=== PATIENT | female | born 1985 | race Caucasian/White ===

== ENCOUNTER 2017-01-01 16:20 | Emergency (ER) | payer SELFPAY ==
[~2017-01-01] VITALS: Ht 162.6 cm; Wt 62.7 kg
[~2017-01-01 16:20] MED LIST: OSEL75 PO
[2017-01-01 16:21] VITALS: BP 145/90; PULSE 88; RESP 12; TEMP 97.9; O2SAT 99
[2017-01-01] MEDS ORDERED: SODIUM CHLORIDE 0.9% FLUSH 5 ML FLUSH IVF PRN (17:00)
[2017-01-01] MEDS ORDERED: PROCHLORPERAZINE INJ 10 MG/2 ML VIAL IVP ONE (17:00)
[2017-01-01] MEDS ORDERED: diphenhydrAMINE HCL 50 MG/ML VIAL IVP ONE (17:00)
[2017-01-01 17:03] VITALS: O2SAT 99
--- NOTE | 2017-01-01 17:22 | PD ---
HPI . Headache Chief Complaint: Headache Time Seen by Provider: 16:50 Travel History International Travel<30 days: No Contact w/Intl Traveler<30days: No Traveled to known affect area: No History of Present Illness HPI Patient presents with a 2 day history of global headache associated with some nausea and vomiting. She has taken Excedrin and BC powders with no relief. She denies any fever or blurred vision. PFSH Past Medical History Diminished Hearing: No Medical other: Yes (migraines ) Musculoskeletal: Yes (CHRONIC BACK PAIN INTERMITTENTLY ) Influenza Vaccination: Yes ?: Not LMP: 12/12/2016 : 1 Miscarriage: 1 Past Surgical History Surgical History: No Previous Surgery Social History Alcohol Use: No Tobacco Use: Yes (1 PPD) Substance Use: No (HX OPIATE ABUSE; ) Allergies-Medications (Allergen,Severity, Reaction): Coded Allergies: Bactrim (Verified Allergy, Intermediate, Itching, 01/01/17) Sulfa (Unverified Allergy, Intermediate, Rash, 01/01/17) Reported Meds & Prescriptions Reported Meds & Active Scripts Active No Active Prescriptions or Reported Medications Review of Systems Except as stated in HPI: all other systems reviewed are Neg General / Constitutional: No: Fever, Chills Eyes: No: Blurred Vision, Photophobia HENT: Positive: Headaches Gastrointestinal: Positive: Nausea, Vomiting Physical Exam Narrative GENERAL: This is a healthy-appearing woman who is lying on the stretcher in a lighted room in no apparent distress. SKIN: Warm and dry. HEAD: Atraumatic. Normocephalic. EYES: Pupils equal and round. ENT: No nasal bleeding or discharge. Mucous membranes pink and moist. RESPIRATORY: No accessory muscle use. MUSCULOSKELETAL: No obvious deformities. No edema. NEUROLOGICAL: Awake and alert. No obvious cranial nerve deficits. Motor grossly within normal limits. Normal speech. PSYCHIATRIC: Appropriate mood and affect; insight and judgment normal. Data Data Last Documented VS Vital Signs Date Time Temp Pulse Resp B/P Pulse Ox O2 Delivery O2 Flow Rate FiO2 01/01/17 17:03 99 Room Air 01/01/17 16:21 97.9 88 12 145/90 Orders Ecg Monitoring (01/01/17 16:50) Iv Access Insert/Monitor (01/01/17 16:50) Oximetry (01/01/17 16:50) Sodium Chloride 0.9% Flush (Ns Flush) (01/01/17 17:00) Prochlorperazine Inj (Compazine Inj) (01/01/17 17:00) Diphenhydramine Inj (Benadryl Inj) (01/01/17 17:00) MDM Medical Decision Making Medical Screen Exam Complete: Yes Emergency Medical Condition: Yes Differential Diagnosis Differential diagnosis of headache includes but is not limited to migraine, muscle contraction headache, brain tumor, brain bleed Narrative Course Patient presents for evaluation and treatment of headache. She does not appear to be in any distress. This is her usual headache. 5:49 PM Patient is now sound asleep in no distress. Diagnosis Primary Impression: Headache Qualified Code: R51 - Acute nonintractable headache, unspecified headache type Scripts No Active Prescriptions or Reported Meds Disposition: 01 DISCHARGE HOME Condition: Stable Hermila Fontana MD Jan 01, 2017 17:22
== END 2017-01-01 18:11 | disposition home or self-care (01) ==
LOC: NEPE 16:20
DX: R51 Headache (principal); F17.210 Nicotine dependence, cigarettes, uncomplicated
CPT/HCPCS: 96374; 96375; 99283; J0780; J1200

== ENCOUNTER 2017-10-16 19:17 | Emergency (ER) | payer SELFPAY ==
[~2017-10-16] VITALS: Ht 162.6 cm; Wt 60.0 kg
[2017-10-16 19:19] VITALS: BP 124/81; PULSE 85; RESP 16; TEMP 98.5; O2SAT 100
--- NOTE | 2017-10-16 20:03 | PD ---
HPI Chief Complaint: Abdominal Pain Time Seen by Provider: 19:32 Travel History International Travel<30 days: No Contact w/Intl Traveler<30days: No Traveled to known affect area: No History of Present Illness HPI 32-year-old female presents to the emergency Department with complaint of a sharp pain in her lower abdomen/pelvic region that has been intermittent for the past couple weeks. She reports nausea and vomiting that is worse at night in the mornings 2 weeks. Reports a mild foul odor vaginal discharge that is intermittent. Denies itchiness or lesions. Denies dysuria. Reports urinary frequency. Denies hematuria, hematemesis. Reports breast tenderness. Denies diarrhea. Last menstrual period was around September 01. Describes the pain as needle. Rates the pain /. He tried Tums and Tylenol for symptom management. Tums made the symptoms worse. Allergies to sulfa. Primary care provider is Dr. Walters. History of hypertension and does not take medications. Does take Suboxone 45 mg daily and Adderall 10 mg twice daily. Denies recent drug use. Denies alcohol use. Reports tobacco use. Has no other medical complaints. No other modifying factors or associated signs and symptoms. PFSH Past Medical History Diminished Hearing: No Musculoskeletal: Yes (CHRONIC BACK PAIN INTERMITTENTLY ) LMP: AUG 23, 2017 : 1 Miscarriage: 1 Social History Alcohol Use: No Tobacco Use: Yes (1 PPD) Substance Use: No (HX OPIATE ABUSE; ) Allergies-Medications (Allergen,Severity, Reaction): Coded Allergies: Sulfa (Sulfonamide Antibiotics) (Unverified Allergy, Intermediate, Rash, 10/16/17) sulfamethoxazole (Unverified Allergy, Intermediate, Itching, 10/16/17) trimethoprim (Unverified Allergy, Intermediate, Itching, 10/16/17) Reported Meds & Prescriptions Reported Meds & Active Scripts Active Macrobid (Nitrofurantoin Monoh/Nitrofur Macro) 100 Mg Cap 100 Mg PO BID 7 Days Reported Suboxone Sublingual Film (Buprenorphine-Naloxone Sublingual Film) 8-2 Mg Film 1 Film SL Unique ID number required: Review of Systems Except as stated in HPI: all other systems reviewed are Neg Physical Exam Narrative GENERAL: Well-nourished, well-developed female female patient, in no acute distress; afebrile, nontoxic-appearing SKIN: Warm and dry. HEAD: Atraumatic. Normocephalic. EYES: Pupils equal and round. No scleral icterus. No injection or drainage. ENT: Mucous membranes pink and moist. NECK: Trachea midline. No lymphadenopathy. CARDIOVASCULAR: Regular rate and rhythm. No murmur appreciated. RESPIRATORY: No accessory muscle use. Clear to auscultation. Breath sounds equal bilaterally. GASTROINTESTINAL: Abdomen soft, non-tender, nondistended. Bilateral pelvic region nontender to palpation. Hepatic and splenic margins not palpable. No guarding, rigidity, rebound tenderness. PELVIC: Exam done in the presence of a nurse. Speculum exam reveals nonedematous and nonerythematous cervix with minimal thick, white cottage- cheese like nonodorous discharge; bluish marian noted to cervix. Bimanual exam reveals no palpable masses or adnexa tenderness, no uterine tenderness. No cervical motion tenderness. Cervical os closed. BACK: No CVA tenderness. MUSCULOSKELETAL: No obvious deformities. No clubbing. No cyanosis. No edema. NEUROLOGICAL: Awake and alert. No obvious cranial nerve deficits. Motor grossly within normal limits. Normal speech. PSYCHIATRIC: Appropriate mood and affect; insight and judgment normal. Data Data Last Documented VS Vital Signs Date Time Temp Pulse Resp B/P (MAP) Pulse Ox O2 Delivery O2 Flow Rate FiO2 10/16/17 19:19 98.5 85 16 124/81 (95) 100 Orders Orders Urinalysis - C+S If Indicated (10/16/17 19:48) Ed Urine Pregnancytest Poc (10/16/17 19:48) Gc And Chlamydia Pcr (10/16/17 19:48) Wet Prep Profile (10/16/17 19:48) Beta Hcg (Quant/Titer) (10/16/17 20:05) Complete Blood Count With Diff (10/16/17 20:05) Comprehensive Metabolic Panel (10/16/17 20:05) Lipase (10/16/17 20:05) Urine Culture (10/16/17 20:20) Us Pelvis (Ques Pr/Ect)W Trans (10/16/17 ) Nitrofurantoin Monohyd Macrocr (Macrobid (10/16/17 22:00) Ed Discharge Order (10/16/17 21:53) Labs Laboratory Tests Test 10/16/17 20:20 10/16/17 20:22 10/16/17 21:11 Urine Color YELLOW Urine Turbidity HAZY Urine pH 6.0 Urine Specific [place] 1.025 Urine Protein TRACE mg/dL Urine Glucose (UA) NEG mg/dL Urine Ketones NEG mg/dL Urine Occult Blood NEG Urine Nitrite NEG Urine Bilirubin NEG Urine Urobilinogen 2.0 MG/DL Urine Leukocyte Esterase MOD Urine WBC 4 /hpf Urine Squamous Epithelial Cells 10 /hpf Urine Bacteria MOD /hpf Urine Mucus FEW /lpf Microscopic Urinalysis Comment CULTURE INDICATED White Blood Count 8.8 TH/MM3 Red Blood Count 4.20 MIL/MM3 Hemoglobin 13.2 GM/DL Hematocrit 38.7 % Mean Corpuscular Volume 92.2 FL Mean Corpuscular Hemoglobin 31.5 PG Mean Corpuscular Hemoglobin Concent 34.1 % Red Cell Distribution Width 12.4 % Platelet Count 153 TH/MM3 Mean Platelet Volume 9.7 FL Neutrophils (%) (Auto) 62.2 % Lymphocytes (%) (Auto) 25.2 % Monocytes (%) (Auto) 7.9 % Eosinophils (%) (Auto) 4.1 % Basophils (%) (Auto) 0.6 % Neutrophils # (Auto) 5.5 TH/MM3 Lymphocytes # (Auto) 2.2 TH/MM3 Monocytes # (Auto) 0.7 TH/MM3 Eosinophils # (Auto) 0.4 TH/MM3 Basophils # (Auto) 0.1 TH/MM3 CBC Comment DIFF FINAL Differential Comment Blood Urea Nitrogen 13 MG/DL Creatinine 0.56 MG/DL Random Glucose 83 MG/DL Total Protein 7.1 GM/DL Albumin 3.6 GM/DL Calcium Level 8.7 MG/DL Alkaline Phosphatase 63 U/L Aspartate Amino Transf (AST/SGOT) 15 U/L Alanine Aminotransferase (ALT/SGPT) 28 U/L Total Bilirubin 0.2 MG/DL Sodium Level 138 MEQ/L Potassium Level 3.7 MEQ/L Chloride Level 105 MEQ/L Carbon Dioxide Level 27.0 MEQ/L Anion Gap 6 MEQ/L Estimat Glomerular Filtration Rate 124 ML/MIN Lipase 104 U/L Human Chorionic Gonadotropin, Quant 64970 MIU/ML Clue Cells (Wet Prep) NONE SEEN Vaginal Trichomonas (Wet Prep) NONE SEEN Vaginal Yeast (Wet Prep) NONE SEEN MDM Medical Decision Making Medical Screen Exam Complete: Yes Emergency Medical Condition: Yes Medical Record Reviewed: Yes Differential Diagnosis , vaginal yeast, bacterial vaginosis, chlamydia, gonorrhea, cervicitis Narrative Course 32-year-old female with positive urine test. Last menstrual period was approximately September 01. She is complaining of lower abdominal, pelvic region cramping and some mildly odorous intermittent vaginal discharge. CBC, CMP, lipase, wet prep, chlamydia, gonorrhea, urinalysis, beta hCG, pelvic ultrasound ordered. 2000: CBC unremarkable. Urinalysis was signs of infection. Urine reflux to culture. Macrobid will be prescribed for home. 2019: CMP unremarkable. Lipase 104. Beta hCG 16767. Negative for clue cells , vaginal Trichomonas, vaginal yeast. Chlamydia and gonorrhea pending. Pelvic ultrasound concludes: Last 24 hours Impressions Pelvis Ultrasound 10/16/17 0000 Signed Impressions: Service Date/Time: Monday, October 16, 2017 20:30 - CONCLUSION: 1. Intrauterine with 6 week size. Cannot confirm viability; no heart rate is documented. 2. Possible subchorionic bleed. 3. Free fluid in the cul-de-sac and left adnexa. Yvon Sousa MD I do not suspect chlamydia or gonorrhea do not feel the patient is to be empirically treated at this time. First dose of Macrobid administered in the ER. Macrobid prescribed for home. Instructed patient to follow up with artificial inseminator. The patient to stop taking Adderall at this time. Instructed patient to follow up with primary care provider. Patient verbalizes understanding and agreement with treatment plan. Patient is medically cleared and stable for discharge. Discussed reasons to return to the emergency department. Patient agrees with treatment plan. The patients vital signs are stable and the patient is stable for outpatient follow-up and treatment. Patient discharged home, stable and in no acute distress. Diagnosis Primary Impression: Intrauterine Additional Impression: UTI (urinary tract infection) in in first trimester Referrals: [facility] Photo Journalist Primary Care Physician Patient Instructions: First Trimester (ED), General Instructions, Urinary Tract Infection in (ED) Additional Instructions: Take antibiotics as prescribed and complete full course Stop taking Adderall Drink plenty of fluids Maintain good personal hygiene Follow-up with primary care provider Follow-up with artificial inseminator Return to the emergency department immediately with worsening of symptoms Med/Other Pt SpecificInfo: Prescription(s) given Scripts Nitrofurantoin Monohydrate Macrocrystals (Macrobid) 100 Mg Cap 100 MG PO BID for Infection for 7 Days, #14 CAP 0 Refills Prov: Shayla Moreno 10/16/17 Disposition: 01 DISCHARGE HOME Condition: Stable Shayla Moreno Oct 16, 2017 20:03
[2017-10-16] MEDS ORDERED: SUBO8MIS SL (20:16)
[2017-10-16 20:44] LABS: BACTERIA, URINE MOD /hpf; BLOOD, URINE NEG (NEG); COMMENT (UR) CULTURE INDICATED; CULTURE IF INDICATED CULTURE INDICATED; GLUCOSE,URINE NEG (NEG); KETONE, URINE NEG (NEG); MUCUS URINE FEW /lpf (OCC); NITRITE,URINE NEG (NEG); SQUAMOUS EPITHELIAL CELL URINE 10 /hpf (0-5); URINE COLOR YELLOW (YELLW/STRAW)
[2017-10-16 20:52] LABS: AUTOMATED NEUTROPHIL # 5.5 TH/MM3 (1.8-7.7); BASOPHIL # 0.1 TH/MM3 (0-0.2); BASOPHIL % 0.6 % (0.0-2.0); EOSINOPHIL # 0.4 TH/MM3 (0-0.4); EOSINOPHIL % 4.1 % (0.0-4.0); HEMATOCRIT 38.7 % (35.0-46.0); HEMO FLAGS DIFF FINAL; LYMPH % 25.2 % (9.0-44.0); LYMPHOCYTE # 2.2 TH/MM3 (1.0-4.8); MEAN CELL VOLUME 92.2 FL (80.0-100.0); MEAN CORPUSCULAR HEMOGLOBIN 31.5 PG (27.0-34.0); MEAN CORPUSCULAR HGB CONC 34.1 % (32.0-36.0); MONO % 7.9 % (0.0-8.0); NEUT % 62.2 % (16.0-70.0); PLATELET COUNT 153 TH/MM3 (150-450); RED CELL DISTRIBUTION WIDTH 12.4 % (11.6-17.2); WHITE BLOOD COUNT 8.8 TH/MM3 (4.0-11.0)
[2017-10-16 21:05] LABS: ANION GAP 6 MEQ/L (5-15); AST (GOT) 15 U/L (15-37); BLOOD UREA NITROGEN 13 MG/DL (7-18); CHLORIDE 105 MEQ/L (98-107); GLOMERULAR FILTRATION RATE 124 ML/MIN (>89); POTASSIUM 3.7 MEQ/L (3.5-5.1); SODIUM (NA) 138 MEQ/L (136-145)
[2017-10-16] MEDS ORDERED: MACR100C2 PO (21:05)
[2017-10-16 21:06] LABS: ALT (GPT) 28 U/L (10-53)
[2017-10-16 21:23] LABS: ALKALINE PHOSPHATASE 63 U/L (45-117); BETA HCG QUANT 31587 MIU/ML (0-5); TOTAL BILIRUBIN ADULT 0.2 MG/DL (0.2-1.0)
--- NOTE | 2017-10-16 21:39 | RADRPT ---
EXAM DATE/TIME: 10/16/2017 20:30 [facility] COMPARISON: No previous studies available for comparison. INDICATIONS : Ectopic. LAB(S): Beta-hC MEDICAL HISTORY : . Substance abuse. UTI. SURGICAL HISTORY : None. ENCOUNTER: Initial ACUITY: 1 day PAIN SCORE: 0/10 LOCATION: Bilateral pelvis MEASUREMENTS: UTERUS: 8.3 x 6.0 x 4.3 cm ENDOMETRIAL STRIPE: 13 mm RIGHT OVARY: 2.8 x 2.8 x 3.2 cm LEFT OVARY: 2.6 x 2.2 x 1.3 cm FINDINGS: A gestational sac is identified within the uterus with a large yolk sac and an amorphous echogenic ar ea measuring 2.1 cm believed to represent pole. The size and is characteristic of 6 week 4 day gestation. No heart rate is demonstrated by Doppler. There is a hypoechoic area adjacent to the sac measured 1.3 x 0.8 cm which may represent subchorionic hemorrhage. Small follicular cysts are seen in both ovaries. There is also a intermediate echotexture 1.8 x 2.1 cm non-shadowing area in the right ovary with peripheral flow seen on color Doppler, possibly represe nting corpus luteum. Moderate amount of free fluid is seen in the cul-de-sac and about the left adne xa. CONCLUSION: 1. Intrauterine with 6 week size. Cannot confirm viability; no heart rate is documen ivan. 2. Possible subchorionic bleed. 3. Free fluid in the cul-de-sac and left adnexa. Yvon Sousa MD on October 16, 2017 at 21:31 Board Certified Radiologist. This report was verified electronically.
[2017-10-16] MEDS ORDERED: NITROFURANTOIN MONOHYD MACROCR 100 MG CAP PO ONE (22:00)
[2017-10-16 23:00] LABS: CHLAMYDIA PCR NOT DETECTED (NOT DETECT); NEISSERIA PCR NOT DETECTED (NOT DETECT)
== END 2017-10-16 22:07 | disposition home or self-care (01) ==
LOC: NEPE 19:17
DX: O23.41 Unspecified infection of urinary tract in pregnancy, first trimester (principal); B96.89 Other specified bacterial agents as the cause of diseases classified elsewhere; O21.9 Vomiting of pregnancy, unspecified; O16.1 Unspecified maternal hypertension, first trimester; O99.331 Smoking (tobacco) complicating pregnancy, first trimester; Z88.2 Allergy status to sulfonamides; Z88.8 Allergy status to other drugs, medicaments and biological substances; Z3A.01 Less than 8 weeks gestation of pregnancy
CPT/HCPCS: 76700; 76817; 80053; 81001; 83690; 84702; 84703; 85025; 87086; 87210; 87491; 87591; 99285

== ENCOUNTER 2017-11-10 18:00 | Emergency (ER) | payer MEDICAID ==
[~2017-11-10 18:00] MED LIST changes: +MACR100C2 PO; -OSEL75 PO; +SUBO8MIS SL
[2017-11-10 18:01] VITALS: BP 140/58; PULSE 91; RESP 16; TEMP 98.7; O2SAT 100
[2017-11-10] MEDS ORDERED: SODIUM CHLOR 0.9% 1000 ML INJ 1,000 ML IV ONE (18:17)
--- NOTE | 2017-11-10 18:41 | PD ---
HPI Chief Complaint: Related Problem Time Seen by Provider: 18:14 Travel History International Travel<30 days: No Contact w/Intl Traveler<30days: No Traveled to known affect area: No History of Present Illness HPI The patient is a whose last menstrual cycle was September 04. The patient estimates she will be 10 weeks , this Thursday. Patient was seen previously in the emergency department one month ago where she had an ultrasound which did not reveal an IUP, however, did reveal a beta hCG of greater than 31,000. The patient states last night she developed some spotting of brown discharge without any visible blood. She denies any abdominal cramping or pain. She does complain of mild dysuria, frequency, and urgency. She denies any fever, chills, or sweats. Symptoms are mild to moderate, there are no alleviating or exacerbating factors. The patient does not know her blood type. PFSH Past Medical History Medical History: Denies Significant Hx Diminished Hearing: No Genitourinary: Yes (FREQUENT KIDNEY INFECTIONS) Musculoskeletal: Yes (CHRONIC BACK PAIN INTERMITTENTLY ) Tetanus Vaccination: > 5 Years Influenza Vaccination: No ?: LMP: 08/25/17 : 2 Miscarriage: 1 Social History Alcohol Use: No Tobacco Use: Yes (1 PPD) Substance Use: No (HX OPIATE ABUSE; ) Allergies-Medications (Allergen,Severity, Reaction): Coded Allergies: Sulfa (Sulfonamide Antibiotics) (Verified Allergy, Intermediate, Rash, ) sulfamethoxazole (Verified Allergy, Intermediate, Itching, 11/10/17) trimethoprim (Verified Allergy, Intermediate, Itching, 11/10/17) Reported Meds & Prescriptions Reported Meds & Active Scripts Active Reported Suboxone Sublingual Film (Buprenorphine-Naloxone Sublingual Film) 8-2 Mg Film 1 Film SL DAILY Unique ID number required: Review of Systems Except as stated in HPI: all other systems reviewed are Neg HENT: No: Lightheadedness Cardiovascular: No: Chest Pain or Discomfort Respiratory: No: Shortness of Breath Gastrointestinal: No: Nausea, Vomiting, Diarrhea, Abdominal Pain Genitourinary: Positive: Urgency, Frequency, Dysuria, Discharge, No: Vaginal Bleeding Skin: No Rash Neurologic: No: Weakness Physical Exam Narrative GENERAL: Awake, alert, pleasant 32-year-old female who appears her stated age and is in no acute respiratory distress. SKIN: Focused skin assessment warm/dry. HEAD: Atraumatic. Normocephalic. EYES: Pupils equal and round. No scleral icterus. No injection or drainage. ENT: No nasal bleeding or discharge. Mucous membranes pink and moist. NECK: Trachea midline. No JVD. CARDIOVASCULAR: Regular rate and rhythm. No murmur appreciated. RESPIRATORY: No accessory muscle use. Clear to auscultation. Breath sounds equal bilaterally. GASTROINTESTINAL: Abdomen soft, non-tender, nondistended. No suprapubic tenderness. MUSCULOSKELETAL: No obvious deformities. No clubbing. No cyanosis. No edema. NEUROLOGICAL: Awake and alert. No obvious cranial nerve deficits. Motor grossly within normal limits. Normal speech. PSYCHIATRIC: Appropriate mood and affect; insight and judgment normal. Data Data Last Documented VS Vital Signs Date Time Temp Pulse Resp B/P (MAP) Pulse Ox O2 Delivery O2 Flow Rate FiO2 11/10/17 18:58 83 14 105/71 (82) 100 Room Air 11/10/17 18:01 98.7 Orders Orders Gc And Chlamydia Pcr (11/10/17 18:17) Complete Rh (11/10/17 18:17) Wet Prep Profile (11/10/17 18:17) Urinalysis - C+S If Indicated (11/10/17 18:17) Iv Access Insert/Monitor (11/10/17 18:17) Sodium Chlor 0.9% 1000 Ml Inj (Ns 1000 M (11/10/17 18:17) Ed Poc Ultrasound (11/10/17 18:17) Beta Hcg (Quant/Titer) (11/10/17 18:25) Us Pelvis (Ques Pr/Ect)W Trans (11/10/17 ) Labs Laboratory Tests Test 11/10/17 18:20 11/10/17 20:00 Urine Color YELLOW Urine Turbidity CLEAR Urine pH 6.5 Urine Specific [place] 1.022 Urine Protein NEG mg/dL Urine Glucose (UA) NEG mg/dL Urine Ketones NEG mg/dL Urine Occult Blood SMALL Urine Nitrite NEG Urine Bilirubin NEG Urine Urobilinogen LESS THAN 2.0 MG/DL Urine Leukocyte Esterase NEG Urine RBC 1 /hpf Urine WBC LESS THAN 1 /hpf Urine Squamous Epithelial Cells 4 /hpf Urine Mucus FEW /lpf Microscopic Urinalysis Comment CULT NOT INDICATED Human Chorionic Gonadotropin, Quant 4599 MIU/ML MDM Medical Decision Making Medical Screen Exam Complete: Yes Emergency Medical Condition: Yes Medical Record Reviewed: Yes Interpretation(s) Ultrasound reveals a gestational sac and echogenic structure without cardiac activity. Small amount of free fluid. Laboratory Tests Test 11/10/17 18:20 11/10/17 20:00 Urine Color YELLOW Urine Turbidity CLEAR Urine pH 6.5 Urine Specific [place] 1.022 Urine Protein NEG mg/dL Urine Glucose (UA) NEG mg/dL Urine Ketones NEG mg/dL Urine Occult Blood SMALL Urine Nitrite NEG Urine Bilirubin NEG Urine Urobilinogen LESS THAN 2.0 MG/DL Urine Leukocyte Esterase NEG Urine RBC 1 /hpf Urine WBC LESS THAN 1 /hpf Urine Squamous Epithelial Cells 4 /hpf Urine Mucus FEW /lpf Microscopic Urinalysis Comment CULT NOT INDICATED Human Chorionic Gonadotropin, Quant 4599 MIU/ML Differential Diagnosis Differential diagnosis includes normal , ectopic , threatened AB, incomplete AB, missed AB, molar , UTI, vaginitis, cervicitis. Narrative Course IV was established, labs are drawn and sent, and the patient was placed on cardiac telemetry monitoring and continuous pulse oximetry monitoring. The patient was administered 1 L of IV fluids. Bedside ultrasound was performed, however, I was unable to visualize an IUP. Therefore, formal ultrasound was ordered with quantitative beta hCG and Rh status. The patient's beta ACG fell to 4599, consistent with missed /incomplete . Patient's blood type is a positive, therefore, no RhoGAM indicated. A pelvic exam was performed in the presence of a female nurse. Ultrasound reveals a gestational sac with an echogenic structure but no heart rate, consistent with missed AB. The patient has a missed AB, I offered to call the OB ED to evaluate possible treatment options. However, the patient just wants to leave the hospital and be with her family. She is currently hemodynamically stable, however, I did advise her to follow-up with a museum educator that she may need outpatient D&C. The patient agrees and understands. She will be provided a copy of her ultrasound results and lab results at discharge. Procedures Procedure Narrative A bedside ultrasound was performed using a curvilinear probe which did not reveal an obvious IUP. The patient tolerated the procedure without difficulty and there was no obvious complications. Diagnosis Primary Impression: Missed Patient Instructions: General Instructions Additional Instructions: Follow-up with gynecology for reevaluation and beta HCG and possible outpatient D&C. Please provide the patient a copy of her ultrasound results and lab results at discharge. Return if symptoms worsen or progress. Med/Other Pt SpecificInfo: No Change to Meds Disposition: 01 DISCHARGE HOME Condition: Stable Eligio Echeverria MD Nov 10, 2017 18:41
[2017-11-10 18:53] LABS: BILIRUBIN, URINE NEG (NEG); BLOOD, URINE SMALL (NEG); GLUCOSE,URINE NEG (NEG); KETONE, URINE NEG (NEG); MUCUS URINE FEW /lpf (OCC); NITRITE,URINE NEG (NEG); PH, URINE 6.5 (5.0-8.5); SQUAMOUS EPITHELIAL CELL URINE 4 /hpf (0-5); URINE COLOR YELLOW (YELLW/STRAW); URINE LEUKOCYTE ESTERASE NEG (NEG)
[2017-11-10 18:58] VITALS: BP 105/71; PULSE 83; RESP 14; O2SAT 100
--- NOTE | 2017-11-10 20:24 | RADRPT ---
EXAM DATE/TIME: 11/10/2017 19:18 [facility] COMPARISON: US PELVIS (QUEST PREG/ECTOPIC) W/TRANSVAG, October 16, 2017, 20:30. GRAVID: 2 PARA: 0 AB: 1 PREV ECTOPIC: No LMP: 08/25/17 BLEEDING: Yes : No BC: No HRT? No PAIN: No If Yes, LOC: INDICATIONS : Bleeding with . LAB(S): Beta-hC--prior 16996 on 10/16/17. MEDICAL HISTORY : . Miscarriage x 1. Back pain. Kidney infections. Substance abuse. SURGICAL HISTORY : None. ENCOUNTER: Subsequent ACUITY: 1 day PAIN SCORE: 0/10 LOCATION: Bilateral pelvis MEASUREMENTS: UTERUS: 10.8 x 7.2 x 5.1 cm ENDOMETRIAL STRIPE: >20 mm RIGHT OVARY: 3.5 x 2.3 x 1.9 cm LEFT OVARY: 3.1 x 2.2 x 1.4 cm FINDINGS: A gestational sac is identified in the uterus which measures 2.9 x 3.9 x 2.3 cm, characteristic of 7 week, 6 day gestation. A yolk sac is not identified. There is an echogenic structure within the sac which measures 8 mm, possibly representing pole, characteristic of 6 weeks, 5 week gestation. The size of this echogenic structure is similar to prior ultrasound on 10/16/17. No heart rat e is documented. The 2 areas of intermediate echotexture in the right ovary, measuring 1.7 x 1.5 cm and 1.4 x 1.4 cm. There is a small amount of free fluid seen in the adnexal region bilaterally. CONCLUSION: 1. A gestational sac is identified, containing an echogenic structure without heart rate. 2. Small amount of free fluid in the adnexal region bilaterally. Yvon Sousa MD on November 10, 2017 at 20:18 Board Certified Radiologist. This report was verified electronically.
[2017-11-11] MEDS ORDERED: IBUP1TAB7 PO (10:53)
== END 2017-11-10 20:54 | disposition home or self-care (01) ==
LOC: NEPD 18:00
DX: O02.1 Missed abortion (principal); Z3A.10 10 weeks gestation of pregnancy
CPT/HCPCS: 76700; 76817; 81001; 84702; 86901; 87210; 87491; 87591; 99285; J7030

== ENCOUNTER 2017-11-11 09:41 | Emergency (ER) | payer MEDICAID ==
[~2017-11-11] VITALS: Ht 162.6 cm; Wt 64.0 kg
[~2017-11-11 09:41] MED LIST changes: -MACR100C2 PO
[2017-11-11 09:43] VITALS: BP 153/85; PULSE 102; RESP 20; TEMP 97.6; O2SAT 95
--- NOTE | 2017-11-11 10:06 | PD ---
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 Patient states she was unable to get into an [employer] and was instructed to come back to the emergency department if this happened. Patient states that prior to arrival, she began having vaginal bleeding. She has moderate lower abdominal cramping. She has not passed any clots. Denies fever or chills. No nausea or vomiting. No other symptoms to report. PFSH Past Medical History Diminished Hearing: No Genitourinary: Yes (FREQUENT KIDNEY INFECTIONS) Musculoskeletal: Yes (CHRONIC BACK PAIN INTERMITTENTLY ) ?: LMP: AUG 25 : 2 Miscarriage: 1 Social History Alcohol Use: No Tobacco Use: Yes (1 PPD) Substance Use: No (HX OPIATE ABUSE; ) Allergies-Medications (Allergen,Severity, Reaction): Coded Allergies: Sulfa (Sulfonamide Antibiotics) (Verified Allergy, Intermediate, Rash, ) sulfamethoxazole (Verified Allergy, Intermediate, Itching, 11/10/17) trimethoprim (Verified Allergy, Intermediate, Itching, 11/10/17) Reported Meds & Prescriptions Reported Meds & Active Scripts Active Ibuprofen 800 Mg Tab 800 Mg PO TID PRN Reported Suboxone Sublingual Film (Buprenorphine-Naloxone Sublingual Film) 8-2 Mg Film 1 Film SL DAILY Unique ID number required: Review of Systems Except as stated in HPI: all other systems reviewed are Neg Physical Exam Narrative GENERAL: She male patient, in no acute distress. SKIN: Focused skin assessment warm/dry. HEAD: Atraumatic. Normocephalic. EYES: Pupils equal and round. No scleral icterus. No injection or drainage. ENT: No nasal bleeding or discharge. Mucous membranes pink and moist. NECK: Trachea midline. No JVD. CARDIOVASCULAR: Regular rate and rhythm. No murmur appreciated. RESPIRATORY: No accessory muscle use. Clear to auscultation. Breath sounds equal bilaterally. GASTROINTESTINAL: Abdomen soft, non-tender, nondistended. Hepatic and splenic margins not palpable. GENITOURINARY: Normal external genitalia without lesions or erythema. Vaginal vault brown-red discharge.. Cervical os is open a fingertip with same drainage.. No cervical motion tenderness. Uterus nontender and nonenlarged. Bilateral adnexa nontender without masses. MUSCULOSKELETAL: No obvious deformities. No clubbing. No cyanosis. No edema. NEUROLOGICAL: Awake and alert. No obvious cranial nerve deficits. Motor grossly within normal limits. Normal speech. PSYCHIATRIC: Appropriate mood and affect; insight and judgment normal. Data Data Last Documented VS Vital Signs Date Time Temp Pulse Resp B/P (MAP) Pulse Ox O2 Delivery O2 Flow Rate FiO2 11/11/17 11:12 11/11/17 09:43 97.6 102 20 95 Orders Orders Ed Discharge Order (11/11/17 10:49) MDM Medical Decision Making Medical Screen Exam Complete: Yes Emergency Medical Condition: Yes Medical Record Reviewed: Yes Differential Diagnosis Missed versus vaginal bleeding versus retained product Narrative Course 32-year-old female presents emergency department for evaluation after being diagnosed with missed yesterday. Patient is having vaginal bleeding now. Cervical os is open to fingertip. I discussed the [facility] with [facility] who advised follow-up with Dr. Larson in 7-10 days. Plan is discussed with the patient. She agrees to return immediately with any acute worsening symptoms. Diagnosis Primary Impression: Missed with demise before 20 completed weeks of gestation Referrals: Raven Monroy MD call for appointment Primary Care Physician Patient Instructions: General Instructions, Miscarriage (ED) Additional Instructions: Contact Dr. Barker's office to schedule an appointment within the next 7-10 days Return to the emergency department immediately with worsening bleeding, fever, uncontrollable pain, or any other concerning symptoms Med/Other Pt SpecificInfo: Prescription(s) given Scripts Ibuprofen (Ibuprofen) 800 Mg Tab 800 MG PO TID Y for PAIN 1 TO 10 AND/OR AGITATION, #30 TAB 0 Refills Prov: Marina Hernandez 11/11/17 Disposition: 01 DISCHARGE HOME Condition: Stable Marina Hernandez Nov 11, 2017 10:06
[2017-11-11] MEDS ORDERED: IBUP1TAB7 PO (10:53)
[2017-11-12] MEDS ORDERED: TRAM50 PO (18:21)
== END 2017-11-11 11:14 | disposition home or self-care (01) ==
LOC: NEPD 09:41
DX: O02.1 Missed abortion (principal); O99.330 Smoking (tobacco) complicating pregnancy, unspecified trimester; Z79.899 Other long term (current) drug therapy; Z88.2 Allergy status to sulfonamides; Z88.8 Allergy status to other drugs, medicaments and biological substances
CPT/HCPCS: 99283

== ENCOUNTER 2017-11-12 17:24 | Emergency (ER) | payer MEDICAID ==
[~2017-11-12] VITALS: Ht 162.6 cm; Wt 65.0 kg
[~2017-11-12 17:24] MED LIST changes: +IBUP1TAB7 PO
[2017-11-12 17:26] VITALS: BP 135/77; PULSE 96; RESP 22; TEMP 98.7; O2SAT 96
[2017-11-12] MEDS ORDERED: TRAM50 PO (18:21)
--- NOTE | 2017-11-12 18:22 | PD ---
HPI Chief Complaint: Related Problem Time Seen by Provider: 17:44 Travel History International Travel<30 days: No Contact w/Intl Traveler<30days: No Traveled to known affect area: No History of Present Illness HPI 32-year-old female complains of pelvic pain and vaginal bleeding. Patient was seen in the emergency room on October 16, 2017 for pelvic pain. Patient was diagnosed with IUP and UTI. Pelvic ultrasound done at that time shows IUP about 6 weeks. Cannot confirm viability. No heart rate was documented. Possible subchorionic bleed. Beta hCG at that time was 31,587. Patient was advised to follow-up with local physician. Patient was seen in emergency room on November 10, 2017 for vaginal spotting. Beta hCG was 4599. Pelvic ultrasound shows gestational sac with an echogenic structure but no heart rate. Patient was advised again to follow with local lan engineer. Patient was seen again in the emergency department November 11, 2017 for increasing abdominal pain and vaginal bleeding. Pelvic exam shows cervical os is open to one fingertip. The case was discussed with ED OB and with patient was advised to follow local lan engineer. Patient has appointment with local lan engineer next week on Thursday. Patient states that she has increasing abdominal pelvic pain and vaginal bleeding today and passing blood clots. Patient return to the ED for follow-up. Patient's blood type A+. PFSH Past Medical History Medical History: Denies Significant Hx Diminished Hearing: No Genitourinary: Yes (FREQUENT KIDNEY INFECTIONS) Musculoskeletal: Yes (CHRONIC BACK PAIN INTERMITTENTLY ) ?: LMP: 08/25/17 : 2 Miscarriage: 1 Social History Alcohol Use: No Tobacco Use: Yes (1 PPD) Substance Use: No (HX OPIATE ABUSE; ) Allergies-Medications (Allergen,Severity, Reaction): Coded Allergies: Sulfa (Sulfonamide Antibiotics) (Verified Allergy, Intermediate, Rash, ) sulfamethoxazole (Verified Allergy, Intermediate, Itching, 11/12/17) trimethoprim (Verified Allergy, Intermediate, Itching, 11/10/17) Reported Meds & Prescriptions Reported Meds & Active Scripts Active Ultram (Tramadol HCl) 50 Mg Tab 50 Mg PO Q6H PRN Ibuprofen 800 Mg Tab 800 Mg PO TID PRN Reported Suboxone Sublingual Film (Buprenorphine-Naloxone Sublingual Film) 8-2 Mg Film 1 Film SL DAILY Unique ID number required: Review of Systems General / Constitutional: No: Fever Eyes: No: Visual changes HENT: No: Headaches Cardiovascular: No: Chest Pain or Discomfort Respiratory: No: Shortness of Breath Gastrointestinal: No: Abdominal Pain Genitourinary: Positive: Pelvic Pain, Vaginal Bleeding, No: Dysuria Musculoskeletal: No: Pain Skin: No Rash Neurologic: No: Weakness Psychiatric: No: Depression Endocrine: No: Polydipsia Hematologic/Lymphatic: No: Easy Bruising Physical Exam Narrative GENERAL: Well-nourished, well-developed patient. SKIN: Focused skin assessment warm/dry. HEAD: Normocephalic. EYES: No scleral icterus. No injection or drainage. NECK: Supple, trachea midline. No JVD or lymphadenopathy. CARDIOVASCULAR: Regular rate and rhythm without murmurs, gallops, or rubs. RESPIRATORY: Breath sounds equal bilaterally. No accessory muscle use. GASTROINTESTINAL: Abdomen soft, non-tender, nondistended. MUSCULOSKELETAL: No cyanosis, or edema. BACK: Nontender without obvious deformity. No CVA tenderness. NEUROPHYSIOLOGY TECH exam: The cervix long thick and closed. Dark brownish discharge in the vaginal vault. No fresh blood. Uterus enlarged with mild tenderness on palpation. No adnexal mass or tenderness. Data Data Last Documented VS Vital Signs Date Time Temp Pulse Resp B/P (MAP) Pulse Ox O2 Delivery O2 Flow Rate FiO2 11/12/17 17:26 98.7 96 22 135/77 (96) 96 Room Air Orders Orders Ed Discharge Order (11/12/17 18:22) MDM Medical Decision Making Medical Screen Exam Complete: Yes Emergency Medical Condition: Yes Differential Diagnosis Differential diagnosis including missed , threatened AB, incomplete AB, completed AB. Narrative Course 32-year-old female with pelvic pain and vaginal bleeding. Examination reveals the cervix is closed and dark brownish discharge in the vaginal vault. No active bleeding now. Patient has appointment with NEUROPHYSIOLOGY TECH physician next week for D &C. Discussed the case with ED OB. Agreed with the plan. Diagnosis Primary Impression: Incomplete Patient Instructions: General Instructions Additional Instructions: Continue with Motrin as needed for pain. Ultrasound was needed for pain. Follow-up with lan engineer. Return if increase pelvic pain, excessive bleeding. Med/Other Pt SpecificInfo: Prescription(s) given Scripts Tramadol (Ultram) 50 Mg Tab 50 MG PO Q6H Y for PAIN, #6 TAB 0 Refills Prov: Gomez Milligan MD 11/12/17 Disposition: 01 DISCHARGE HOME Condition: Stable Gomez Milligan MD Nov 12, 2017 18:21
[2017-11-12 19:00] VITALS: BP 105/69; PULSE 80; RESP 16
[2017-11-13] MEDS ORDERED: BUPR1SUB6 SL (02:51)
[2017-11-13] MEDS ORDERED: DOXY100C PO (04:10)
== END 2017-11-12 19:25 | disposition home or self-care (01) ==
LOC: NEPC 17:24
DX: O03.4 Incomplete spontaneous abortion without complication (principal); O99.331 Smoking (tobacco) complicating pregnancy, first trimester; Z79.899 Other long term (current) drug therapy; Z88.2 Allergy status to sulfonamides; Z88.8 Allergy status to other drugs, medicaments and biological substances; Z3A.01 Less than 8 weeks gestation of pregnancy
CPT/HCPCS: 99283

== ENCOUNTER 2017-11-13 02:21 | Emergency (ER) | payer MEDICAID ==
[~2017-11-13] VITALS: Ht 162.6 cm; Wt 63.0 kg
[~2017-11-13 02:21] MED LIST changes: +TRAM50 PO
[2017-11-13 02:23] VITALS: BP 132/97; PULSE 135; RESP 22; TEMP 98.6; O2SAT 98
[2017-11-13] MEDS ORDERED: SODIUM CHLOR 0.9% 1000 ML INJ 1,000 ML IV ONE (02:28)
[2017-11-13] MEDS ORDERED: MORPHINE SULFATE 2 MG/ML INJ IV PUSH ONE (02:30)
[2017-11-13] MEDS ORDERED: ONDANSETRON HCL 4 MG/2 ML VIAL IV PUSH ONE (02:30)
[2017-11-13] MEDS ORDERED: KETOROLAC TROMETHAMINE 30 MG/ML (IVP) VIAL IV PUSH ONE (02:30)
[2017-11-13] MEDS ORDERED: BUPR1SUB6 SL (02:51)
--- NOTE | 2017-11-13 03:06 | PD ---
HPI Chief Complaint: Related Problem Time Seen by Provider: 02:28 Travel History International Travel<30 days: No Contact w/Intl Traveler<30days: No Traveled to known affect area: No History of Present Illness HPI The patient is a 32-year-old female who presents emergency department for possible spontaneous . The patient is a whose last menstrual cycle was August 25, 2017. The patient was seen several days ago in the emergency department by myself and had an ultrasound which revealed a gestational sac but no heart activity. The patient's beta hCG had fallen from over 30,000 down to approximately 4500. I offered to call OB ED at that time for possible arrangement of a D&C as the patient had a missed , however, the patient wanted to go home at that time. The patient has been seen in the emergency department several times since then for continuing occasional cramping and spotting. The patient has an appointment on Thursday for a D&C, however, approximately 3 hours prior to arrival developed severe abdominal pain and cramping with vaginal bleeding which she describes is brisk, bright, with a few clots and possible tissue. The patient thinks she is currently undergoing a spontaneous . She denies any fever, chills, or sweats. She does complain of moderate lower abdominal pain that is cramping in nature, nonradiating, without any alleviating or exacerbating factors. PFSH Past Medical History Diminished Hearing: No Genitourinary: Yes (FREQUENT KIDNEY INFECTIONS) Musculoskeletal: Yes (CHRONIC BACK PAIN INTERMITTENTLY ) Influenza Vaccination: Yes ?: LMP: 10-3-17 : 2 Miscarriage: 1 Past Surgical History Surgical History: No Previous Surgery Social History Alcohol Use: No Tobacco Use: Yes (1 PPD) Substance Use: No (HX OPIATE ABUSE; ) Allergies-Medications (Allergen,Severity, Reaction): Coded Allergies: Sulfa (Sulfonamide Antibiotics) (Verified Allergy, Intermediate, Rash, ) sulfamethoxazole (Verified Allergy, Intermediate, Itching, 11/12/17) trimethoprim (Verified Allergy, Intermediate, Itching, 11/10/17) Reported Meds & Prescriptions Reported Meds & Active Scripts Active Ultram (Tramadol HCl) 50 Mg Tab 50 Mg PO Q6H PRN Ibuprofen 800 Mg Tab 800 Mg PO TID PRN Reported Buprenorphine-Naloxone 8-2 Mg Subl 1 Tab SL Review of Systems Except as stated in HPI: all other systems reviewed are Neg HENT: No: Lightheadedness Cardiovascular: No: Chest Pain or Discomfort Respiratory: No: Shortness of Breath Gastrointestinal: No: Nausea, Vomiting, Abdominal Pain Genitourinary: Positive: Pelvic Pain, Vaginal Bleeding Neurologic: No: Weakness, Dizziness Physical Exam Narrative GENERAL: Awake, alert, pleasant 32-year-old female appears her stated age and appears to be in moderate discomfort. SKIN: Focused skin assessment warm/dry. HEAD: Atraumatic. Normocephalic. EYES: Pupils equal and round. No scleral icterus. No injection or drainage. ENT: No nasal bleeding or discharge. Mucous membranes pink and moist. NECK: Trachea midline. No JVD. CARDIOVASCULAR: Regular, tachycardic with a heart rate of 110. RESPIRATORY: No accessory muscle use. Clear to auscultation. Breath sounds equal bilaterally. GASTROINTESTINAL: Abdomen soft, mild suprapubic tenderness. No guarding or rigidity. Pelvic: The exam was performed in the presence of a female nurse. External examination reveals blood at the vaginal introitus. The patient spontaneously passed products of conception. This was bottled and sent to lab. Speculum examination was performed which revealed blood in the vaginal wall. This was removed using 4 x 4's on Heather's. The cervix was identified, cervix was blue, the os is open approximately one and a half centimeters with blood clots. There is no excessive heavy hemorrhaging. MUSCULOSKELETAL: No obvious deformities. No clubbing. No cyanosis. No edema. NEUROLOGICAL: Awake and alert. No obvious cranial nerve deficits. Motor grossly within normal limits. Normal speech. PSYCHIATRIC: Appropriate mood and affect; insight and judgment normal. Data Data Last Documented VS Vital Signs Date Time Temp Pulse Resp B/P (MAP) Pulse Ox O2 Delivery O2 Flow Rate FiO2 11/13/17 02:23 98.6 135 22 132/97 (109) 98 Room Air Orders Orders Beta Hcg (Quant/Titer) (11/13/17 02:28) Complete Blood Count With Diff (11/13/17 02:28) Iv Access Insert/Monitor (11/13/17 02:28) Ecg Monitoring (11/13/17 02:28) Sodium Chlor 0.9% 1000 Ml Inj (Ns 1000 M (11/13/17 02:28) Morphine Inj (Morphine Inj) (11/13/17 02:30) Ondansetron Inj (Zofran Inj) (11/13/17 02:30) Ketorolac Inj (Toradol Inj) (11/13/17 02:30) Labs Laboratory Tests Test 11/13/17 02:45 White Blood Count 12.0 TH/MM3 Red Blood Count 3.83 MIL/MM3 Hemoglobin 12.3 GM/DL Hematocrit 35.6 % Mean Corpuscular Volume 93.1 FL Mean Corpuscular Hemoglobin 32.0 PG Mean Corpuscular Hemoglobin Concent 34.4 % Red Cell Distribution Width 12.4 % Platelet Count 144 TH/MM3 Mean Platelet Volume 9.8 FL Neutrophils (%) (Auto) 71.2 % Lymphocytes (%) (Auto) 18.7 % Monocytes (%) (Auto) 7.7 % Eosinophils (%) (Auto) 2.0 % Basophils (%) (Auto) 0.4 % Neutrophils # (Auto) 8.5 TH/MM3 Lymphocytes # (Auto) 2.2 TH/MM3 Monocytes # (Auto) 0.9 TH/MM3 Eosinophils # (Auto) 0.2 TH/MM3 Basophils # (Auto) 0.0 TH/MM3 CBC Comment DIFF FINAL Differential Comment Human Chorionic Gonadotropin, Quant 2387 MIU/ML MDM Medical Decision Making Medical Screen Exam Complete: Yes Emergency Medical Condition: Yes Medical Record Reviewed: Yes Interpretation(s) Laboratory Tests Test 11/13/17 02:45 White Blood Count 12.0 TH/MM3 Red Blood Count 3.83 MIL/MM3 Hemoglobin 12.3 GM/DL Hematocrit 35.6 % Mean Corpuscular Volume 93.1 FL Mean Corpuscular Hemoglobin 32.0 PG Mean Corpuscular Hemoglobin Concent 34.4 % Red Cell Distribution Width 12.4 % Platelet Count 144 TH/MM3 Mean Platelet Volume 9.8 FL Neutrophils (%) (Auto) 71.2 % Lymphocytes (%) (Auto) 18.7 % Monocytes (%) (Auto) 7.7 % Eosinophils (%) (Auto) 2.0 % Basophils (%) (Auto) 0.4 % Neutrophils # (Auto) 8.5 TH/MM3 Lymphocytes # (Auto) 2.2 TH/MM3 Monocytes # (Auto) 0.9 TH/MM3 Eosinophils # (Auto) 0.2 TH/MM3 Basophils # (Auto) 0.0 TH/MM3 CBC Comment DIFF FINAL Differential Comment Human Chorionic Gonadotropin, Quant 2387 MIU/ML Differential Diagnosis Differential diagnosis includes missed AB, incomplete AB, threatened AB, septic AB, dehydration, symptomatic anemia. Narrative Course IV was established, labs are drawn and sent, and the patient was placed on cardiac telemetry monitoring and continuous pulse oximetry monitoring. I reviewed the EMR, the patient is blood type positive, therefore, no indication for RhoGAM. 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 Beta hCG level was sent to lab. A pelvic exam was performed in the presence of a female nurse. The patient spontaneously passed products of conception. The Prilosec conception were sent to lab. Pelvic exam revealed a cervix that was approximately 1.5 cm in diameter with a blood clot. This was removed. No excessive hemorrhaging was noted. The patient was observed in the emergency department. I discussed the patient with the on-call tanner rotary drum continuous process/ rail manager, Dr. Freitas, who recommends discharging the patient home on pain medications and doxycycline. She is advised to follow-up with her rail manager/ tanner rotary drum continuous process on Thursday as scheduled. Diagnosis Primary Impression: Spontaneous Patient Instructions: General Instructions Additional Instructions: Medications as directed. Return if symptoms worsen or progress. Follow-up with her rail manager/tanner rotary drum continuous process as scheduled. Med/Other Pt SpecificInfo: Prescription(s) given Scripts Doxycycline Hyclate (Doxycycline Hyclate) 100 Mg Cap 100 MG PO BID for Infection, #20 CAP 0 Refills Prov: Eligio Echeverria MD 11/13/17 Disposition: DISCHARGE HOME Condition: Stable Eligio Echeverria MD Nov 13, 2017 03:06
[2017-11-13 03:08] LABS: AUTOMATED NEUTROPHIL # 8.5 TH/MM3 (1.8-7.7); BASOPHIL % 0.4 % (0.0-2.0); EOSINOPHIL # 0.2 TH/MM3 (0-0.4); HEMATOCRIT 35.6 % (35.0-46.0); HEMOGLOBIN 12.3 GM/DL (11.6-15.3); LYMPH % 18.7 % (9.0-44.0); LYMPHOCYTE # 2.2 TH/MM3 (1.0-4.8); MEAN CELL VOLUME 93.1 FL (80.0-100.0); MEAN CORPUSCULAR HGB CONC 34.4 % (32.0-36.0); MEAN PLATELET VOLUME 9.8 FL (7.0-11.0); MONO % 7.7 % (0.0-8.0); MONOCYTE # 0.9 TH/MM3 (0-0.9); NEUT % 71.2 % (16.0-70.0); PLATELET COUNT 144 TH/MM3 (150-450); RED BLOOD COUNT 3.83 MIL/MM3 (4.00-5.30); RED CELL DISTRIBUTION WIDTH 12.4 % (11.6-17.2)
[2017-11-13] MEDS ORDERED: DOXY100C PO (04:10)
== END 2017-11-13 06:04 | disposition home or self-care (01) ==
LOC: NEPE 02:21
DX: O02.1 Missed abortion (principal); Z3A.00 Weeks of gestation of pregnancy not specified
CPT/HCPCS: 84702; 85025; 88305; 96361; 96374; 96375; 99284; J1885; J2270; J2405; J7030

== ENCOUNTER 2018-03-04 18:01 | Emergency (ER) | payer MEDICAID ==
[~2018-03-04] VITALS: Ht 162.6 cm; Wt 65.0 kg
[~2018-03-04 18:01] MED LIST changes: +BUPR1SUB6 SL; +DOXY100C PO; -SUBO8MIS SL; -TRAM50 PO
[2018-03-04 18:25] VITALS: BP 149/99; PULSE 102; RESP 16; TEMP 98.8; O2SAT 99
[2018-03-04] MEDS ORDERED: MUPI2%T TOPICAL (19:55)
[2018-03-04] MEDS ORDERED: CLIN300C5 PO (19:55)
--- NOTE | 2018-03-04 19:57 | PD ---
HPI Chief Complaint: Bite or Sting Time Seen by Provider: 19:41 Travel History International Travel<30 days: No Contact w/Intl Traveler<30days: No Traveled to known affect area: No History of Present Illness HPI 32-year-old female presents emergency department with 2 lesions on the right lateral thigh which he thought may be spider bites. She states she noticed one a few days ago and another one just today. She thought they might be spider bites. She does admit to recently shaving which may be a contributing factor. Patient denies fever, chills, or history of MRSA. She is allergic to sulfa. The areas are not itchy and mildly painful. She states they started looking like a pimple and then got worse. They are not draining. PFSH Past Medical History Medical History: Denies Significant Hx Diminished Hearing: No Genitourinary: Yes (FREQUENT KIDNEY INFECTIONS) Musculoskeletal: Yes (CHRONIC BACK PAIN INTERMITTENTLY ) ?: Not LMP: 02/21/18 : 2 Miscarriage: 1 Past Surgical History Surgical History: No Previous Surgery Social History Alcohol Use: No Tobacco Use: Yes (1 PPD) Substance Use: No (HX OPIATE ABUSE; ) Allergies-Medications (Allergen,Severity, Reaction): Coded Allergies: Sulfa (Sulfonamide Antibiotics) (Verified Allergy, Intermediate, Rash, 11/09) sulfamethoxazole (Verified Allergy, Intermediate, Itching, 03/04/18) trimethoprim (Verified Allergy, Intermediate, Itching, 03/04/18) Reported Meds & Prescriptions Reported Meds & Active Scripts Active Bactroban Topical (Mupirocin) 22 Gm Cream 1 Applic TOPICAL TID Clindamycin (Clindamycin HCl) 300 Mg Cap 300 Mg PO TID 7 Days Doxycycline Hyclate 100 Mg Cap 100 Mg PO BID Ibuprofen 800 Mg Tab 800 Mg PO TID PRN Reported Buprenorphine-Naloxone 8-2 Mg Subl 1 Tab SL Review of Systems Except as stated in HPI: all other systems reviewed are Neg General / Constitutional: No: Fever Eyes: No: Visual changes HENT: No: Headaches Cardiovascular: No: Chest Pain or Discomfort Respiratory: No: Shortness of Breath Gastrointestinal: No: Abdominal Pain Genitourinary: No: Dysuria Musculoskeletal: No: Pain Skin: Positive Lesions (See history of present illness), No Rash Neurologic: No: Weakness Psychiatric: No: Depression Endocrine: No: Polydipsia Hematologic/Lymphatic: No: Easy Bruising Physical Exam Narrative GENERAL: No acute distress per SKIN: Warm and dry. Normal color. Normal turgor. Patient has 2 separate superficial lesions to the right lateral thigh consistent with folliculitis. There is minimal induration and erythema. There is no sign of deep abscess HEAD: Atraumatic. Normocephalic. EYES: Pupils equal and round. No scleral icterus. No injection or drainage. ENT: No nasal bleeding or discharge. Mucous membranes pink and moist. Pharynx is clear. Airways patent NECK: Trachea midline. Supple CARDIOVASCULAR: Regular rate and rhythm. RESPIRATORY: No accessory muscle use. Clear to auscultation. Breath sounds equal bilaterally. MUSCULOSKELETAL: Extremities without clubbing, cyanosis, or edema. No obvious deformities. NEUROLOGICAL: Awake and alert. No obvious cranial nerve deficits. Motor grossly within normal limits. Five out of 5 muscle strength in the arms and legs. Normal speech. PSYCHIATRIC: Appropriate mood and affect; insight and judgment normal. Data Data Last Documented VS Vital Signs Date Time Temp Pulse Resp B/P (MAP) Pulse Ox O2 Delivery O2 Flow Rate FiO2 03/04/18 18:25 98.8 102 16 149/99 (116) 99 MDM Medical Decision Making Medical Screen Exam Complete: Yes Emergency Medical Condition: Yes Differential Diagnosis Insect bite. Folliculitis. Cellulitis. MRSA. Narrative Course Patient is given clindamycin 300 mg 3 times daily 7 days. Patient is given Bactroban ointment to be applied twice daily. Patient to follow-up if symptoms do not improve or worsen as needed. Diagnosis Primary Impression: Folliculitis Patient Instructions: Folliculitis (ED), General Instructions, MRSA ( Methicillin-Resistant Staphylococcus Aureus) (ED) Additional Instructions: Patient is given clindamycin 300 mg 3 times daily 7 days. Patient is given Bactroban ointment to be applied twice daily. Patient to follow-up if symptoms do not improve or worsen as needed. Med/Other Pt SpecificInfo: Prescription(s) given Scripts Mupirocin Topical (Bactroban Topical) 22 Gm Cream 1 APPLIC TOPICAL TID for Mgmt Bacterial Infection, #1 TUBE 0 Refills Prov: Ji Wheeler MD 03/04/18 Clindamycin (Clindamycin) 300 Mg Cap 300 MG PO TID for Infection for 7 Days, CAP 0 Refills Prov: Ji Wheeler MD 03/04/18 Disposition: 01 DISCHARGE HOME Condition: Stable Chavo Bowman Mar 04, 2018 19:57
== END 2018-03-04 20:31 | disposition home or self-care (01) ==
LOC: NEPK 18:01
DX: L73.9 Follicular disorder, unspecified (principal); F17.200 Nicotine dependence, unspecified, uncomplicated
CPT/HCPCS: 99283

== ENCOUNTER 2018-04-07 19:45 | Emergency (ER) | payer MEDICAID ==
[~2018-04-07] VITALS: Ht 170.2 cm; Wt 64.0 kg
[~2018-04-07 19:45] MED LIST changes: +CLIN300C5 PO; +MUPI2%T TOPICAL
[2018-04-07 20:09] VITALS: BP 127/63; PULSE 87; RESP 18; TEMP 98.5; O2SAT 99
[2018-04-07 21:01] LABS: AMORPHOUS SEDIMENT, URINE RARE; BACTERIA, URINE MOD /hpf; BILIRUBIN, URINE NEG (NEG); BLOOD, URINE SMALL (NEG); GLUCOSE,URINE NEG (NEG); HYALINE CAST, URINE 2 /lpf (RARE); KETONE, URINE NEG (NEG); NITRITE,URINE POS (NEG); SQUAMOUS EPITHELIAL CELL URINE 12 /hpf (0-5); URINE COLOR YELLOW (YELLW/STRAW); URINE LEUKOCYTE ESTERASE TRACE (NEG)
[2018-04-07] MEDS ORDERED: CEPH-460 PO (21:27)
--- NOTE | 2018-04-07 21:28 | PD ---
HPI Chief Complaint: Complaint Time Seen by Provider: 21:20 Travel History International Travel<30 days: No Contact w/Intl Traveler<30days: No Traveled to known affect area: No History of Present Illness HPI Patient is a well-appearing 33-year-old female presenting to the emergency department for evaluation of 2 days of urinary frequency and burning. She denies any back pain, abdominal pain, nausea, vomiting, fever, chills. Symptom onset was gradual, symptoms are moderate in nature. Patient has been taking [id number] Azo which has not helped relieve her symptoms. Patient denies any significant past medical history. [facility] Past Medical History Medical History: Denies Significant Hx Diminished Hearing: No Genitourinary: Yes (FREQUENT KIDNEY INFECTIONS) Musculoskeletal: Yes (CHRONIC BACK PAIN INTERMITTENTLY ) Immunizations Current: Yes ?: Unknown : 2 Miscarriage: 1 Past Surgical History Surgical History: No Previous Surgery Social History Alcohol Use: Yes Tobacco Use: Yes (1 PPD) Substance Use: No (HX OPIATE ABUSE; ) Allergies-Medications (Allergen,Severity, Reaction): Coded Allergies: Sulfa (Sulfonamide Antibiotics) (Verified Allergy, Intermediate, Rash, ) sulfamethoxazole (Verified Allergy, Intermediate, Itching, 04/07/18) trimethoprim (Verified Allergy, Intermediate, Itching, 04/07/18) Reported Meds & Prescriptions Reported Meds & Active Scripts Active Bactroban Topical (Mupirocin) 22 Gm Cream 1 Applic TOPICAL TID Clindamycin (Clindamycin HCl) 300 Mg Cap 300 Mg PO TID 7 Days Doxycycline Hyclate 100 Mg Cap 100 Mg PO BID Ibuprofen 800 Mg Tab 800 Mg PO TID PRN Reported Buprenorphine-Naloxone 8-2 Mg Subl 1 Tab SL Review of Systems Except as stated in HPI: all other systems reviewed are Neg Genitourinary: Positive: Frequency, Dysuria, No: Hematuria, Pelvic Pain, Flank Pain Physical Exam Narrative GENERAL: Well-developed, well-nourished, well-appearing female. Presenting in no acute distress. SKIN: Warm and dry. HEAD: Atraumatic. Normocephalic. EYES: Pupils equal and round. No scleral icterus. No injection or drainage. ENT: No nasal bleeding or discharge. Mucous membranes pink and moist. NECK: Trachea midline. No JVD. CARDIOVASCULAR: Regular rate and rhythm. RESPIRATORY: No accessory muscle use. Clear to auscultation. Breath sounds equal bilaterally. GASTROINTESTINAL: Abdomen soft, non-tender, nondistended. Hepatic and splenic margins not palpable. MUSCULOSKELETAL: Extremities without clubbing, cyanosis, or edema. No obvious deformities. No CVAT bilaterally. NEUROLOGICAL: Awake and alert. No obvious cranial nerve deficits. Motor grossly within normal limits. Five out of 5 muscle strength in the arms and legs. Normal speech. PSYCHIATRIC: Appropriate mood and affect; insight and judgment normal. Data Data Last Documented VS Vital Signs Date Time Temp Pulse Resp B/P (MAP) Pulse Ox O2 Delivery O2 Flow Rate FiO2 04/07/18 20:09 98.5 87 18 127/63 (84) 99 Orders Orders Urinalysis - C+S If Indicated (04/07/18 20:13) Urine Culture (04/07/18 20:16) Ed Urine Pregnancytest Poc (04/07/18 21:20) Labs Laboratory Tests Test 04/07/18 20:16 Urine Color YELLOW Urine Turbidity HAZY Urine pH 6.0 Urine Specific [place] 1.025 Urine Protein NEG mg/dL Urine Glucose (UA) NEG mg/dL Urine Ketones NEG mg/dL Urine Occult Blood SMALL Urine Nitrite POS Urine Bilirubin NEG Urine Urobilinogen LESS THAN 2.0 MG/DL Urine Leukocyte Esterase TRACE Urine RBC 3 /hpf Urine WBC LESS THAN 1 /hpf Urine Squamous Epithelial Cells 12 /hpf Urine Amorphous Sediment RARE Urine Bacteria MOD /hpf Urine Hyaline Casts 2 /lpf Microscopic Urinalysis Comment CULTURE INDICATED MDM Medical Decision Making Medical Screen Exam Complete: Yes Emergency Medical Condition: Yes Interpretation(s) Laboratory Tests Test 04/07/18 20:16 Urine Color YELLOW Urine Turbidity HAZY Urine pH 6.0 Urine Specific [place] 1.025 Urine Protein NEG mg/dL Urine Glucose (UA) NEG mg/dL Urine Ketones NEG mg/dL Urine Occult Blood SMALL Urine Nitrite POS Urine Bilirubin NEG Urine Urobilinogen LESS THAN 2.0 MG/DL Urine Leukocyte Esterase TRACE Urine RBC 3 /hpf Urine WBC LESS THAN 1 /hpf Urine Squamous Epithelial Cells 12 /hpf Urine Amorphous Sediment RARE Urine Bacteria MOD /hpf Urine Hyaline Casts 2 /lpf Microscopic Urinalysis Comment CULTURE INDICATED Vital Signs Date Time Temp Pulse Resp B/P (MAP) Pulse Ox O2 Delivery O2 Flow Rate FiO2 04/07/18 20:09 98.5 87 18 127/63 (84) 99 Differential Diagnosis UTI versus pyelonephritis versus other Narrative Course Patient is 33-year-old female presenting with urinary symptoms for the last 2 days. Patient's vital signs are stable. Urinalysis shows a nitrate positive urinary tract infection. Patient will be given first dose of Keflex now. Urine cultures pending. Patient is encouraged to complete full course of antibiotics, increase oral fluid intake. She was encouraged to follow-up with her primary doctor or return to emergency department for any new or worsening symptoms. She verbalized understanding, patient stable for discharge. Diagnosis Primary Impression: Urinary tract infection Qualified Codes: N39.0 - Urinary tract infection, site not specified; R31.9 - Hematuria, unspecified Referrals: [facility] Primary Care Physician Patient Instructions: General Instructions, Urinary Tract Infection in Women ( ED) Additional Instructions: Follow-up with your primary doctor or at the [facility] clinic Complete full course of antibiotics as prescribed Return to emergency department for any new or worsening symptoms Med/Other Pt SpecificInfo: Prescription(s) given Scripts Cephalexin (Keflex) 500 Mg Cap 500 MG PO Q8H for Infection, #21 CAP 0 Refills Prov: Hali Lynn 04/07/18 Disposition: 01 DISCHARGE HOME Condition: Stable Hali Lynn April 07, 2018 21:28
[2018-04-07] MEDS ORDERED: CEPHALEXIN MONOHYDRATE 500 MG CAP PO ONE (21:30)
== END 2018-04-07 21:56 | disposition home or self-care (01) ==
LOC: NEPD 19:45
DX: N39.0 Urinary tract infection, site not specified (principal); R31.9 Hematuria, unspecified; F17.210 Nicotine dependence, cigarettes, uncomplicated; B96.20 Unspecified Escherichia coli [E. coli] as the cause of diseases classified elsewhere; B96.89 Other specified bacterial agents as the cause of diseases classified elsewhere; Z16.23 Resistance to quinolones and fluoroquinolones
CPT/HCPCS: 81001; 84703; 87077; 87086; 87186; 99283